=== PATIENT | female | born 1990 | race Caucasian/White ===

== ENCOUNTER → 2021-09-27 15:22 | Outpatient (CLI) | payer BC, SELFPAY ==
--- NOTE | ~2021-09-27 | US_ITS ---
EXAMINATION: US OB /maternal detail DATE: 09/27/2021 15:52 INDICATION: Second trimester anatomic survey TECHNIQUE: Real-time ultrasound of the pelvis was performed. COMPARISON: None. FINDINGS: There is a single living fetus in vertex presentation. The placenta is anterior and 6.2 cm from the i nternal cervical os. heart rate is 149 beats per minute (bpm). cardiac activity and feta l movement are noted. The amniotic fluid index is subjectively normal. The ventricular outflow tracts are not well demonstrated. The following anatomy was identified as normal: 4 chamber heart 3 vessel cord cord insertion kidneys urinary bladder stomach spine diaphragm ventricles cisterna magna cerebellum The following biometric data were obtained: Biparietal diameter (BPD): 4.1 cm; head circumference (HC): 15.5 cm; abdominal circumference (AC): 12 .5 cm; femur length (FL): 2.7 cm. These measurements are concordant. Estimated weight is 230 g +/- 34 g, which correlates with the 78th percentile when 03/02/2022 is used as estimated date of delivery. As single measurements, these parameters are each equal to the following estimated gestational ages w ith ranges of +/- 2 standard deviations: BPD: 18 weeks 3 days ( 16 weeks 5 days - 20 weeks 1 days). HC: 18 weeks 3 days ( 17 weeks 0 days - 20 weeks 0 days). AC: 18 weeks 1 days ( 16 weeks 1 days - 20 weeks 1 days). FL: 18 weeks 2 days ( 16 weeks 3 days - 20 weeks 0 days). estimated gestational age based solely on measurements from this exam is 18 weeks 2 days +/- 1 weeks 2 days. IMPRESSION: 1. Single living fetus in vertex presentation. 2. Estimated weight is 230 g +/- 34 g, which correlates with the 78th percentile when 03/02/2022 is used as estimated date of delivery. 3. Ventricular outflow tracts not well demonstrated. Reviewed, dictated and finalized at location F. CY ADVISER IMPRESSION: 1. Single living fetus in vertex presentation. 2. Estimated weight is 230 g +/- 34 g, which correlates with the 78th per centile when 03/02/2022 is used as estimated date of delivery. 3. Ventricular outflow tracts not well demonstrated.
== END ==
PROVIDERS: Visit Provider Obstetrics & Gynecology Gynecology
DX: Z36.9 Encounter for antenatal screening, unspecified (principal); Z3A.18 18 weeks gestation of pregnancy
CPT/HCPCS: 76805

== ENCOUNTER → 2021-11-04 11:52 | Outpatient (CLI) | payer BC, SELFPAY ==
--- NOTE | ~2021-11-04 | US_ITS ---
EXAMINATION: US OB follow up EXAM DATE: 11/04/2021 12:22 INDICATION: Anatomy follow-up. 2nd trimester. TECHNIQUE: Pelvic obstetrical transabdominal sonogram was performed by a technologist. There are mu ltiple grayscale and Doppler images available for interpretation. Comparison is made to prior examina tion from 09/27/2021. FINDINGS: There is a single fetus identified in breech presentation with a heart rate of 142 beats pe r minute. The placenta is located in the anterior position. There is a placental venous day measurin g 2.6 x 1.5 x 3.3 cm. Another smaller venous day. There is no sonographic evidence of retroplacental hemorrhage identified. There is subjectively expected amount of amniotic fluid. Cardiac outflow tracts visualized, sonographically expected appearance. The other Anatomy was v isualized on prior examination. IMPRESSION: 1. Single fetus in breech presentation with heart rate 142 beats per minute. 2. cardiac outflow tracts sonographically normal. Reviewed, dictated and finalized at location A. D LOGISTICS COORDINATOR
== END ==
PROVIDERS: Visit Provider Nurse Practitioner
DX: O32.1XX0 Maternal care for breech presentation, not applicable or unspecified (principal); Z3A.00 Weeks of gestation of pregnancy not specified
CPT/HCPCS: 76816

== ENCOUNTER 2021-12-03 08:50 | Outpatient (RCR) | payer BC, SELFPAY ==
[2021-12-03 10:43] LABS: Hematocrit 32.2 % (37.0-47.0); Hemoglobin 10.7 g/dL (12.0-15.0)
[2021-12-03 10:52] LABS: Glucose 1 Hour PP 50gm Dose 85 mg/dL
[2021-12-03 11:14] LABS: Vitamin D 25 Hydroxy 51.7 ng/mL
[2021-12-03 11:32] LABS: HIV 1/2 Ab P24 Ag Result Negative (Negative)
[2021-12-04] MEDS: RHO(D) IMMUNE GLOBULIN 300 MCG/2 ML SYRINGE IM (16:56)
== END 2022-03-03 23:59 | disposition home or self-care (01) ==
LOC: ANHLAB 08:50
PROVIDERS: PCP Physician Assistant; Visit Provider Nurse Practitioner
DX: Z11.4 Encounter for screening for human immunodeficiency virus [HIV] (principal); O36.0120 Maternal care for anti-D [Rh] antibodies, second trimester, not applicable or unspecified; Z3A.00 Weeks of gestation of pregnancy not specified
CPT/HCPCS: 36415; 82306; 82947; 85014; 85018; 85461; 86703; 90384; 96372; G0432; J2790

== ENCOUNTER → 2021-12-12 10:27 | Outpatient (CLI) | payer BC, SELFPAY ==
--- NOTE | ~2021-12-12 | US_ITS ---
. EXAMINATION: US OB follow up DATE: 12/12/2021 11:01 INDICATION: Size less than dates. TECHNIQUE: Real-time ultrasound of the pelvis was performed. COMPARISON: Ultrasound 11/04/2021, 09/27/2021 FINDINGS: There is a single living fetus in vertex presentation. The placenta is anterior, 8.8 cm from the cer vix. heart rate is 138 beats per minute (bpm). The amniotic fluid index is 14.0 cm, which is no rmal. The following biometric data were obtained: Biparietal diameter (BPD): 7.7 cm; head circumference (HC): 28.1 cm; abdominal circumference (AC): 24 .8 cm; femur length (FL): 5.7 cm. These measurements are concordant. Estimated weight is 1412 g +/- 212 g, which correlates with the 74th percentile when 03/02/22 is used as estimated date of delivery. As single measurements, these parameters are each equal to the following estimated gestational ages w ith ranges of +/- 2 standard deviations: BPD: 30 weeks 6 days (27 weeks 6 days - 34 weeks 0 days). HC: 30 weeks 5 days (27 weeks 5 days - 33 weeks 5 days). AC: 29 weeks 0 days (26 weeks 6 days - 31 weeks 1 days). FL: 29 weeks 5 days (27 weeks 4 days - 31 weeks 6 days). estimated gestational age based solely on measurements from this exam is 30 weeks 1 days +/- 2 weeks 1 days. IMPRESSION: 1. Single living fetus in vertex presentation. 2. Estimated weight is 1412 g +/- 212 g, which correlates with the 74th percentile when 2 is used as estimated date of delivery. Reviewed, dictated and finalized at location A. IMPRESSION: 1. Single living fetus in vertex presentation. 2. Estimated weight is 1412 g +/- 212 g, which correlates with the 74th percentile when 03/02/22 is used as estimated date of delivery.
== END ==
PROVIDERS: Visit Provider Obstetrics & Gynecology Gynecology
DX: O36.5930 Maternal care for other known or suspected poor fetal growth, third trimester, not applicable or unspecified (principal); Z3A.30 30 weeks gestation of pregnancy
CPT/HCPCS: 76816

== ENCOUNTER → 2022-01-21 09:56 | Outpatient (CLI) | payer BC, SELFPAY ==
--- NOTE | ~2022-01-21 | US_ITS ---
EXAMINATION: US OB follow up DATE: 01/21/2022 10:16 INDICATION: Size less than dates during third trimester TECHNIQUE: Real-time ultrasound of the pelvis was performed. The interpreting radiologist was not pre sent for the study. COMPARISON: 12/12/2021 FINDINGS: There is a single living fetus in vertex presentation. The placenta is anterior. card iac activity and movement are noted. heart rate is 129 beats per minute (bpm). The amniot ic fluid index is 9.6 cm which is normal (normal range: 8.1 cm to 24.8 cm). The following biometric data were obtained: Biparietal diameter (BPD): 8.9 cm; head circumference (HC): 32.1 cm; abdominal circumference (AC): 31 .0 cm; femur length (FL): 6.9 cm. These measurements are concordant. Estimated weight is 2637 g +/- 395 g, which correlates with the 74th percentile when 03/02/2022 is used as estimated date of delivery. As single measurements, these parameters are each equal to the following estimated gestational ages w ith ranges of +/- 2 standard deviations: BPD: 35 weeks 6 days ( 32 weeks 5 days - 38 weeks 6 days). HC: 36 weeks 2 days ( 33 weeks 4 days - 39 weeks 0 days). AC: 35 weeks 0 days ( 32 weeks 0 days - 38 weeks 0 days). FL: 35 weeks 1 days ( 32 weeks 2 days - 38 weeks 1 days). estimated gestational age based solely on measurements from this exam is 35 weeks 4 days +/- 2 weeks 3 days. IMPRESSION: 1. Single living fetus in vertex presentation. 2. Normal amniotic fluid index. 3. Estimated weight is 2637 g +/- 395 g, which correlates with the 74th percentile when 03/02/20 22 is used as estimated date of delivery. Reviewed, dictated and finalized at location A. IMPRESSION: 1. Single living fetus in vertex presentation. 2. Normal amniotic fluid index. 3. Estimated weight is 2637 g +/- 395 g, which correlates with the 74th p ercentile when 03/02/2022 is used as estimated date of delivery.
== END ==
PROVIDERS: PCP Obstetrics & Gynecology Gynecology; Visit Provider Obstetrics & Gynecology Gynecology
DX: O36.5930 Maternal care for other known or suspected poor fetal growth, third trimester, not applicable or unspecified (principal); Z3A.35 35 weeks gestation of pregnancy
CPT/HCPCS: 76816

== ENCOUNTER 2022-02-17 22:39 | Inpatient (IN) | payer BC, SELFPAY ==
[2022-02-17 22:50] VITALS: BMI 25.8
[2022-02-18] VITALS (36 sets, daily range): BP systolic 44–139; BP diastolic 20–88; PULSE 49–228; RESP 16–18; TEMP 36.6–36.7; O2SAT 97
--- NOTE | 2022-02-18 06:20 | LDADM ---
This patient, Deyanira Addison, was admitted to Labor/Delivery/Recovery 107 on 02/17/22 at 22:39. Plans for labor, pain management and were discussed with patient. Patient/family oriented to hospital policies and general routines including ID bracelet, bed and alarms, visiting hours, pain management, procedures, bathroom and other care routines, personal items, smoking policy, room service/diet and guest tray routines, infant security routines, and visiting hours. Patient/Family are encouraged to report perceived risks to care and to ask questions if they do not understand what they are told or what they should do. See OBIX for further documentation.
[2022-02-18] MEDS: LACTATED RINGERS 1,000 ML 125 ML IV CONT ×2 (06:39→07:19)
[2022-02-18 06:40] LABS: Basophils Percent Auto 0.4 % (0.2-1.2); Eosinophils Absolute Auto 0.1 K/mm3 (0-0.3); Eosinophils Percent Auto 0.6 % (0-4.4); Hematocrit 39.5 % (37.0-47.0); Immature Granulocyte Absolute 0.04 K/mm3 (0.00-0.031); Immature Granulocyte Percent A 0.4 % (0-0.5); Lymphocytes Absolute Auto 3.15 K/mm3 (0.9-3.2); Lymphocytes Percent Auto 29.5 % (18.3-44.2); Mean Corpuscular HGB Conc 32.9 g/dl (32-36); Mean Corpuscular Hemoglobin 28.1 pg (26-34); Mean Corpuscular Volume 85.5 fl (80-100); Mean Platelet Volume 10.8 fl (7.4-10.4); Monocytes Absolute Auto 0.7 K/mm3 (0.1-0.6); Monocytes Percent Auto 6.7 % (2.6-8.5); Neutrophils Absolute Auto 6.7 K/mm3 (1.3-6.7); Neutrophils Percent Auto 62.4 % (45.5-73.1); Platelet Count Result 273 k/mm3 (150-375); Red Blood Count 4.62 M/mm3 (4.2-5.4); Red Cell Distribution Width 12.8 % (11.5-14.5); White Blood Count 10.7 K/mm3 (4.5-10.0)
--- NOTE | 2022-02-18 07:44 | WPDANESEPPF ---
Anes - Initial Pre Proc Eval Date/Time: 02/18/22 07:44 Surgeon: Gracie Goldman MD Pre Op Diagnosis: contractions Patient Data Age: 31 Gender: F Height: 1.68 m Weight: 72.6 kg Last Vital Signs Pulse 75 02/18/22 07:31 BP 122/81 02/18/22 07:31 Allergies Allergy/AdvReac Type Severity Reaction Status Date / Time Penicillins Allergy Intermediate HIVES Verified 02/18/22 06:25 Home Medications Medication Instructions Recorded Confirmed Type ergocalciferol (vitamin D2) 1,250 1,250 mcg PO WEEKLY 02/05/22 02/05/22 History mcg (50,000 unit) capsule (Vitamin D2) prenat.vits,nunu,mln-dhae-hsggr 1 tablet PO DAILY 02/05/22 02/05/22 History Laboratory Tests 02/18/22 02/18/22 06:32 06:32 WBC 10.7 K/mm3 H K/mm3 (4.5-10.0) RBC 4.62 M/mm3 M/mm3 (4.2-5.4) Hgb 13.0 g/dL g/dL (12.0-15.0) Hct 39.5 % % (37.0-47.0) MCV 85.5 fl fl (80-100) MCH 28.1 pg pg (26-34) MCHC 32.9 g/dl g/dl (32-36) RDW 12.8 % % (11.5-14.5) Plt Count 273 k/mm3 k/mm3 (150-375) MPV 10.8 fl H fl (7.4-10.4) Immature Gran % (Auto) 0.4 % % (0-0.5) Neut % (Auto) 62.4 % % (45.5-73.1) Lymph % (Auto) 29.5 % % (18.3-44.2) George % (Auto) 6.7 % % (2.6-8.5) Eos % (Auto) 0.6 % % (0-4.4) Baso % (Auto) 0.4 % % (0.2-1.2) Lymph # (Auto) 3.15 K/mm3 K/mm3 (0.9-3.2) George # (Auto) 0.7 K/mm3 H K/mm3 (0.1-0.6) Eos # (Auto) 0.1 K/mm3 K/mm3 (0-0.3) Baso # (Auto) 0.0 K/mm3 K/mm3 (0.0-0.1) Abs Immat Gran (auto) 0.04 K/mm3 H K/mm3 (0.00-0.031) Absolute Neuts (auto) 6.7 K/mm3 K/mm3 (1.3-6.7) Absolute Nucleated RBC 0.0 K/mm3 K/mm3 (0.0-0.012) Nucleated RBC % 0.0 % % (0.0-0.2) RPR Pending Patient hx anesthesia problems: none Family hx anesthesia problems: none Results Review: All pre-operative results and documents have been reviewed as part of the pre-operative evaluation. [facility] Family History Family History (Updated 02/05/22 @ 15:57 by Alyssia Tayolr RN) Father Heart disease Grandparent Heart disease Social History Social History Smoking status: Never smoker Second hand tobacco smoke exposure: No Substance use: never Spiritual care concerns: No Anes - Eval Final PreProcedure Day of Procedure 02/18/22 07:44 Patient weight: overweight Heart: regular rate and rhythm Lungs: clear to auscultation and normal air movement Airway: Mallampati scale class II Neurological: alert and oriented Last oral intake: >/= 8 hours ASA classification: II Emergent: no Anesthetic plan: proceed Anesthesia type and monitoring: regional epidural Results Review: All pre-operative results and documents have been reviewed as part of the pre-operative evaluation. Informed Consent: The patient's anesthetic plan and its attendant risks and benefits were discussed with the patient/family/POA. Questions were solicited and answers provided to the satisfaction of the patient/family/POA.
--- NOTE | 2022-02-18 08:24 | WPDOBADMIT ---
Obstetrics - Admit Note Admission Note: record reviewed. No pertinent additions to the history and/or any subsequent changes in the physical findings that are not consistent with the expected course of the were found. Additions to the history and/or subsequent changes in the physical findings follow. None.Here in labor. Cervix 6/70/-2 AROM with clear fluid. FHTs reactive.
[2022-02-18] MEDS: OXYTOCIN 30 UNITS/NS 500 ML 30 UNITS/500 ML BAG 125 UNITS IV CONT (10:30)
--- NOTE | 2022-02-18 10:35 | PM.OBPRVD ---
OB - Delivery Note Procedure Delivery date: 02/18/22 Procedure: Induction method: None Delivery augmentation: Rupture of Membranes Delivery monitor: External FHT and External Uterine Route of delivery: Laceration Description: None Specimen: No Quantitative Blood Loss (ml): 200 Anesthesia type: Epidural Disposition: Floor Baby Date of : 02/18/22 Weeks of gestation at delivery: 38 gender: Male presentation: vertex position: Right Occiput Anterior Placenta delivery description: Spontaneous Cord Vessel Description: 3 Vessels and Nuchal Cord score one minute: 8 score five minutes: 9
--- NOTE | 2022-02-18 10:37 | PM.OBDSVD ---
DS: Admitting Diagnosis Discharge Date 02/19/22 Admitting Diagnosis labor at 38 4/7 DS: Discharge Diagnosis Discharge Diagnosis (1) (normal spontaneous vaginal delivery): Code(s): O80 - Encounter for full-term uncomplicated delivery Status: Acute OB - DS: Summary OB Procedures : Ultrasound OB Procedures Intrapartum: Spontaneous Vag Delivery OB Procedures: : None Peripartum Data Infant Delivery Method: Natural Vaginal Laceration Description: None complications: none Status at Discharge Functional status at discharge: independent ambulation Overall status at discharge: patient is progressing back to baseline Time Spent with Patient Time attestation: Total time spent providing and/or coordinating discharge services: DS: Data Data Completed and Pending Labs on day of discharge: Labs from last 24 hours 02/18/22 02/18/22 02/18/22 07:02 06:32 06:32 WBC 10.7 H RBC 4.62 Hgb 13.0 Hct 39.5 MCV 85.5 MCH 28.1 MCHC 32.9 RDW 12.8 Plt Count 273 MPV 10.8 H Immature Gran % (Auto) 0.4 Neut % (Auto) 62.4 Lymph % (Auto) 29.5 Wetzel % (Auto) 6.7 Eos % (Auto) 0.6 Baso % (Auto) 0.4 Lymph # (Auto) 3.15 Wetzel # (Auto) 0.7 H Eos # (Auto) 0.1 Baso # (Auto) 0.0 Abs Immat Gran (auto) 0.04 H Absolute Neuts (auto) 6.7 Absolute Nucleated RBC 0.0 Nucleated RBC % 0.0 RPR Pending Blood Type O Negative Antibody Screen Positive Antibody Identification Passive Due to RH Imm Glob Antigen Identification Cancelled WES, IgG Interpret Not Performed WES, Poly Interpret Negative WES, Complement Interp Not Performed Discharge Plan Discharge Attending physician on discharge: Gracie Goldman Discharging Clinician: Gracie Goldman Anticipated Discharge Date/Time: 02/19/22 10:37 Patient Disposition: Home, Self-Care Activity: may shower Diet: regular Patient Instructions: Antibiotic Form Stand Alone Forms: General Discharge Information Follow-up/Referrals: Gracie Goldman MD [Physician] - Discharge Medications: New norethindrone (contraceptive) 0.35 mg tablet 0.35 mg PO DAILY Qty: 84 3RF Continued ergocalciferol (vitamin D2) [Vitamin D2] 1,250 mcg (50,000 unit) Capsule 1,250 mcg PO WEEKLY #2 Tablet 1 tablet PO DAILY Date of admission: 02/17/22 22:39 Primary Care Provider: PHYSICIAN NOT ON STAFF,NONSTAFF Admitting Provider: Gracie Goldman Attending physician on admission: Gracie Goldman Condition: Stable
[2022-02-18 14:15] LABS: Rapid Plasma Reagin Non-Reactive (NonReactive)
--- NOTE | 2022-02-18 14:43 | OBPPTRN ---
Patient transferred to post room #283 via wheelchair. Support person present. Oriented to unit, room, information board, rooming in, admission packet and security measures. Patient verbalizes understanding.
[2022-02-18] MEDS: IBUPROFEN 600 MG TABLET PO (21:39)
[2022-02-19 04:40] VITALS: BP 113/72; PULSE 61; RESP 16; TEMP 36.6
[2022-02-19 05:54] LABS: Hematocrit 34.2 % (37.0-47.0); Hemoglobin 11.5 g/dL (12.0-15.0)
[2022-02-19] MEDS: DOCUSATE SODIUM 100 MG CAPSULE PO (07:09)
[2022-02-19] MEDS: IBUPROFEN 600 MG TABLET PO ×2 (07:09→12:02)
[2022-02-19 07:10] VITALS: BP 105/72; PULSE 55; RESP 16; TEMP 36.6; O2SAT 98
--- NOTE | 2022-02-19 07:43 | PM.OBPNVD ---
OB - PN: Subj Subjective Date/time seen: 02/19/22 07:43 Patient comments: no complaints and pain well controlled baby status: doing well OB - PN: Obj Data Labs CBC & Chem 7: 02/19/22 04:55 Labs: Laboratory Results - last 24 hr 02/18/22 02/18/22 02/19/22 06:32 07:02 04:55 Hgb 11.5 L Hct 34.2 L RPR Non-reactive Blood Type O Negative Antibody Screen Positive Antibody Identification Passive Due to RH Imm Glob Antigen Identification Cancelled WES, IgG Interpret Not Performed WES, Poly Interpret Negative WES, Complement Interp Not Performed OB - PN A/P Plan day: 1 Plan: routine care, discharge home, follow up 6 weeks and other (micronor for bc) Time Spent With Patient Time: Total time spent is greater than 50% in coordination of care (as documented) at patient's floor/unit and/or counseling patient: Exam : Bimanual exam- vagina & uterus: other (Uterus firm, nt @U)
--- NOTE | 2022-02-19 09:15 | WPDANLDPN2 ---
Anes-Prog Note L&D Date/Time: 02/19/22 09:15 Neuro status: Neuro function grossly intact. Vital Signs: Last Vital Signs Temp 36.6 C 02/19/22 07:10 Pulse 55 L 02/19/22 07:10 Resp 16 02/19/22 07:10 BP 105/72 02/19/22 07:10 Pulse Ox 98 02/19/22 07:10 O2 Del Method Room Air 02/18/22 19:25 Pain score (VAS): 1 I/O: Intake & Output 02/18/22 02/19/22 02/19/22 23:59 07:59 15:59 Intake Total 500 Output Total 400 Balance 100 Patient feedback: Patient satisfied with anesthetic care.
--- NOTE | 2022-02-19 11:52 | PC.NURSE ---
Patient viewed the discharge video Mother & Baby Care, The First Two Weeks . Patient was given the opportunity and encouraged to ask questions. Patient verbalized understanding of information shared and has been given the mother/baby guide for home reference.
[2022-02-19] MEDS: MULTIVIT/MIN/PREN/FOL AC/IRON TABLET 1 TAB PO (12:03)
[2022-02-21 09:08] VITALS: BP 114/71; PULSE 78; RESP 18; TEMP 36.6; O2SAT 99
== END 2022-02-19 13:15 | disposition home or self-care (01) | DRG 807 ==
LOC: ANHLDR 02-18 10:38 → ANHOB2 02-18 14:50
PROVIDERS: Advanced Practice Midwife; Admitting Provider Obstetrics & Gynecology Gynecology; Visit Provider Obstetrics & Gynecology Gynecology
DX: O69.81X0 Labor and delivery complicated by cord around neck, without compression, not applicable or unspecified (principal); Z37.0 Single live birth; O76 Abnormality in fetal heart rate and rhythm complicating labor and delivery; Z3A.38 38 weeks gestation of pregnancy
CPT/HCPCS: 36415; 85014; 85018; 85025; 86592; 86850; 86880; 86900; 86901; A9270; J2590; J2795; J7120

== ENCOUNTER → 2023-05-04 11:22 | Outpatient (CLI) | payer BC, SELFPAY ==
--- NOTE | ~2023-05-04 | US_ITS ---
EXAMINATION: US pelvic complete DATE: 05/04/2023 11:47 INDICATION: Pelvic pain Comparison:No prior studies TECHNIQUE: Multiple transabdominal sonographic images of the pelvis performed. FINDINGS: The uterus measures 8.9 x 4.6 x 6.2 cm. The endometrial complex measures 1.2 cm. The right ovary measures 4.7 x 1.9 x 1.7 cm and the left ovary measures 4.1 x 1.2 x 2.1 cm. There ar e small follicles in each ovary. Normal doppler signal in both ovaries. There is no free fluid in the pelvis. There are no abnormal masses seen on either side. IMPRESSION: 1. Mild endometrial thickening measuring 12 mm. Reviewed, dictated and finalized at location B.
== END ==
PROVIDERS: PCP Physician Assistant; Visit Provider Nurse Practitioner
DX: R10.2 Pelvic and perineal pain (principal)
CPT/HCPCS: 76856